=== PATIENT | female | born 1985 | race Caucasian/White ===

== ENCOUNTER 2016-10-10 12:56 | Emergency (ER) | payer MEDICARE, MEDICAID ==
[~2016-10-10] VITALS: Ht 165.1 cm; Wt 52.2 kg
[~2016-10-10 12:56] MED LIST: ATIVAN2 MG ORAL; BENADRYL50 MG ORAL; BENTYL10 MG ORAL; CARAFATE1 G1 ORAL; COLACE100 MG ORAL; CYCLOBENZAPRINE10 MG ORAL; IBUPROFEN400 MG ORAL; IMITREX50 MG ORAL; IMITREX6 MG/0.5 M SQ; LACTULOSE20 GM/301 ORAL; MIRALAX17 GM ORAL; NEURONTIN100 MG ORAL; NKM; NORCO 5-325 TA1 EACH ORAL; PANCREASE1 EA GT; PERCOCET 7.5-31 EACH ORAL; PHENERGAN SUPP25 MG RECTAL; PROTONIX40 MG ORAL; RANITIDINE HCL150 MG ORAL; VICODIN 5-3001 EACH ORAL; ZOFRAN ODT4 MG ORAL; ZOFRAN4 MG ORAL; ZOMIG5 MG ORAL
[2016-10-10] MEDS ORDERED: DiphenhydrAMINE 50mg/ml Inj IVP ONE ×2 (14:15→16:15)
[2016-10-10] MEDS ORDERED: LORazepam 1mg tab ORAL ONE (14:15)
[2016-10-10 14:30] LABS: APPEARANCE,URINE CLEAR; KETONES,URINE NEGATIVE (NEGATIVE); LEUKOCYTE ESTERASE ,URINE 1+ (NEGATIVE); NITRITE,URINE NEGATIVE (NEGATIVE); PH,URINE 6 (4.5-8.0); PROTEIN,URINE NEGATIVE (NEGATIVE); UROBILINOGEN,URINE NORMAL MG/DL (0.0-1.0)
[2016-10-10 14:45] LABS: BACTERIA,URINE FEW /HPF; RBC,URINE 0-2 /HPF (0 - 2); SQUAMOUS EPITHELIAL CELL,UR FEW /LPF (NONE/OCC); WBC,URINE 0-2 /HPF (0 - 2)
[2016-10-10] MEDS ORDERED: LORazepam Inj 2mg/ml 1ml IV ONE (15:30)
--- NOTE | 2016-10-10 15:39 | Emergency Room Report ---
History of Present Illness General Chief Complaint: Pain Present Illness HPI 31 YO female presents to the ED c/o migraine AGUILAR 07/16 in severity progressive onset denies N/V/F/C. Describes migraine as usual migraine AGUILAR and has Neurology appt. next week. Pt. reports that Imitrex does not work for her and in the ED she usually gets Ativan and Benadryl for her migraines. Pt also reports recent dx earlier this week with bilateral ovarian cysts and states continued pain due to OBGYN not prescribing her medications and telling her they will resolve on their own. PT describes bilateral adenexal pain radiating into the flanks. denies hematuria, frequency, or dysuria. Lastly pt. also requests evaluation of her "pancreatitis" as she intermittently has epigastric pain and is NPO and requires TPN. Pt. denies states is on Nexplanon implant, Denies hx of STI or PID. Denies CP, Palpitations, LOC, AMS, dizziness, Changes in Vision, Sensation, paresthesias, or a sudden severe headache. Allergies: Coded Allergies: ASPIRIN (Unverified Allergy, Unknown, 01/22/16) LATEX (Verified Allergy, Unknown, 01/22/16) METOCLOPRAMIDE (Unverified Allergy, Unknown, 01/22/16) PENICILLIN (Unverified Allergy, Unknown, 01/22/16) PROCHLORPERAZINE (Unverified Allergy, Unknown, 05/11/15) SULFA (SULFONAMIDE ANTIBIOTICS) (Unverified Allergy, Unknown, 05/11/15) Uncoded Allergies: SULFA (Allergy, Unknown, 01/22/16) Patient History Past Medical History: see triage record Past Surgical History: none Pertinent Family History: none Last Menstrual Period: 09/16/16 Now: No Reviewed Nursing Documentation: PMH: Agreed, PSxH: Agreed Nursing Documentation-PMH Hx Cardiac Problems: No Hx Hypertension: No Hx Pacemaker: No Hx Asthma: No Hx COPD: No Hx Diabetes: No Hx Cancer: No Hx Gastrointestinal Problems: Yes - pancreatitis Hx Dialysis: Yes Hx Neurological Problems: Yes - Migraines Hx Cerebrovascular Accident: No Hx Seizures: No Hx Vertigo: Yes Hx Dizziness: Yes Hx Headaches: Yes - migraines Review of Systems All Other Systems: negative except mentioned in HPI Physical Exam Vital Signs Date Time Temp Pulse Resp B/P Pulse Ox O2 Delivery O2 Flow Rate FiO2 10/10/16 12:58 98.2 116 20 107/75 100 Room Air Sp02 EP Interpretation: reviewed, normal - VS re-evaluated pt. is nontachycardic General Appearance: no apparent distress, alert, GCS 15, non-toxic, other - Pt observed from distance in NAD on her phone during ED visit. Head: normocephalic, atraumatic Eyes: bilateral eye PERRL, bilateral eye normal inspection ENT: hearing grossly normal, normal pharynx, no angioedema, normal voice Neck: full range of motion, supple/symm/no masses Respiratory: chest non-tender, lungs clear, normal breath sounds, speaking full sentences Cardiovascular #1: regular rate, rhythm Cardiovascular #2: 2+ radial (R), 2+ radial (L) Gastrointestinal: normal bowel sounds, soft, no mass, no guarding, no rebound, other - diffuse TTP in epigastric area, RUQ , negative mcburnys, no peritoneal signs Rectal: deferred Genitourinary: normal inspection, no CVA tenderness, other - bilateral adenexal TTP, no LAD Musculoskeletal: back normal, gait/station normal, normal range of motion, non- tender, no calf tenderness Neurologic: alert, oriented x3, responsive, motor strength/tone normal, sensory intact, cerebellar normal, normal gait, speech normal Psychiatric: judgement/insight normal, memory normal, mood/affect normal, no suicidal/homicidal ideation Skin: normal color, no rash, warm/dry, well hydrated Lymphatic: no adenopathy Medical Decision Making PA Attestation Dr. Lomeli is my supervising Physician whom patient management has been discussed with. Diagnostic Impression: Primary Impression: Migraine headache Qualified Codes: G43.909 - Migraine, unspecified, not intractable, without status migrainosus Additional Impressions: Hx of ovarian cyst Hx of pancreatitis ER Course Pt. presents to the ED c/o 1) migraine 10/10 in severity, describes typical migraine. progressive onset, with neurologist appt. next week. pt states Imitrex does not work for her, and states " only IV Ativan and Benadryl help " 2) Pt also requests "evaluation of her pancreatitis" PT reports chronic epigastric pain, nausea, decreased appetite, inability to have oral intake and requires TPN. 3) Pt. reports continued Bilateral Adenexal pain with hx of ovarian cyst with US performed this past week at [facility]. pt reports "OBGYN saw bilateral ovarian cysts and stated there is no surgery needed, and also did not prescribe her with anything." Ddx considered but are not limited to migraine, SAH, Psedudo motor Cerebri, Mass lesion, Cluster AGUILAR, Tension AGUILAR, Post lumbar puncture AGUILAR, acute pancreatitis , ovarian cysts, torsion, ectopic . Vital signs: are WNL, pt. is afebrile H&PE are most consistent with migraine headache. - Previous recent visits with laboratory work noted to be normal. Pt noted to have multiple visits for both migraine and abdominal pain with similar presentations. I do not feel further laboratory or imaging tests are warranted other than Lipase and UA. pt. is not actively vomiting at this time in NAD, PE does not suggest dehydration. Pt is ambulatory with no focal neurological deficits due to progressive onset and hx of migraines CT imaging is not warranted at this time. - D/w pt. that ovarian cysts are usually benign and treated with oral anti- inflammatory medications. - Pt states she cannot have medications orally due to her gastritis and pancreatitis. ORDERS: - Lipase: 61 WNL -UA: WNL no evidence of infection no wbc's no leukocyte esterase, few bacteria and few epithelial cells indicate contamination. ED INTERVENTIONS: 25 mg Benadryl IV -150mg Zantac- Pt. refused and requested all meds to be IV -50mg Pepcid IV -1mg Ativan IV -25mg Benadryl (second dose) -After discussion of laboratory results and discharge plan pt. began to request stronger pain medications as interventions provided have not completely relieved her pain. - D/w pt. that she needs to follow up with GI specialist, Neurologist, OBGYN, PCP and possibly Chronic Pain management doctor, as she is stable for out patient treatment, and normally she would be prescribed tylenol or motrin however she refused stating she can't have PO meds, d/w pt. that her presentation and lab results today to not warrant I.V pain medications and also discussed with pt. that we cant d/c her with I.V pain medications so giving her one dose here ultimately will only be a short-duration temporary intervention. - Pt. makes several complaints that "we never completely treat her here in the ED, and even the doctors upstairs never follow up." - d/w pt. that her exam and laboratory work does not indicate further interventions or work up in the ED, that she is stable to outpatient follow up. -d/w pt. that dilaudid and morphine are not standard of care for migraines. PT is well known to [facility] for pain related complaints, with drug seeking behavior, and Opioid dependence, in addition to non-satisfaction with multiple ED providers. DISCHARGE: At this time pt. is stable for d/c to home. Will provide printed patient care instructions, and any necessary prescriptions. Care plan and follow up instructions have been discussed with the patient prior to discharge. Labs Test 10/10/16 14:01 10/10/16 15:00 Urine Color Pale yellow Urine Appearance Clear Urine pH 6 (4.5-8.0) Urine Specific [place] 1.015 (1.005-1.035) Urine Protein Negative (NEGATIVE) Urine Glucose (UA) Negative (NEGATIVE) Urine Ketones Negative (NEGATIVE) Urine Occult Blood 1+ (NEGATIVE) Urine Nitrite Negative (NEGATIVE) Urine Bilirubin Negative (NEGATIVE) Urine Urobilinogen Normal MG/DL (0.0-1.0) Urine Leukocyte Esterase 1+ (NEGATIVE) Urine RBC 0-2 /HPF (0 - 2) Urine WBC 0-2 /HPF (0 - 2) Urine Squamous Epithelial Cells Few /LPF (NONE/OCC) Urine Bacteria Few /HPF (NONE) Lipase 61 U/L (< 60) Last Vital Signs Date Time Temp Pulse Resp B/P Pulse Ox O2 Delivery O2 Flow Rate FiO2 10/10/16 12:58 98.2 116 20 107/75 100 Room Air Disposition: HOME, SELF-CARE Condition: Stable Referrals: NOT CHOSEN IPA/,REFERRING (PCP) Patient Instructions: Migraine Headache, [id number] Additional Instructions: Take any previously prescribed medications as directed. -Follow up with your Neurologist in 3-4 days - Follow up with your PCP in 3-4 days. Return sooner to ED if new symptoms occur, or current symptoms become worse. Jennifer Ramirez Oct 10, 2016 15:39
[2016-10-10] MEDS ORDERED: Famotidine 20 MG/ 2ML VIAL IVP ONE (16:00)
[2016-10-10 16:39] VITALS: BP 110/79
[2016-10-10 16:42] VITALS: BP 107/75
== END 2016-10-10 16:43 | disposition home or self-care (01) ==
LOC: EMR 14:10
DX: G43.909 Migraine, unspecified, not intractable, without status migrainosus (principal); Z87.19 Personal history of other diseases of the digestive system; Z87.898 Personal history of other specified conditions; Z88.2 Allergy status to sulfonamides; Z88.6 Allergy status to analgesic agent; Z88.0 Allergy status to penicillin; Z91.040 Latex allergy status; Z87.42 Personal history of other diseases of the female genital tract
CPT/HCPCS: 36415; 81003; 83690; 96374; 96375; 99284; J1200; S0028

== ENCOUNTER 2016-12-18 02:54 | Emergency (ER) | payer MEDICARE, MEDICAID ==
[~2016-12-18] VITALS: Ht 165.1 cm; Wt 52.2 kg
[2016-12-18] MEDS ORDERED: NKM (03:08)
[2016-12-18] MEDS ORDERED: DiphenhydrAMINE 50mg/ml Inj IVP ONE ×2 (03:30→04:30)
[2016-12-18] MEDS ORDERED: Famotidine 20 MG/ 2ML VIAL IVP ONE (03:30)
[2016-12-18] MEDS ORDERED: LORazepam Inj 2mg/ml 1ml IV ONE ×2 (03:30→04:30)
[2016-12-18 03:45] LABS: BASOPHILS % (AUTO) 1.2 % (0.0-2.0); EOSINOPHILS % (AUTO) 4.7 % (0.0-3.0); LYMPHOCYTES % (AUTO) 48.5 % (20.0-45.0); MEAN CORPUSCULAR HGB CONC 33.4 G/DL (32.0-36.0); MEAN CORPUSCULAR VOLUME 90 FL (80-99); MEAN PLATELET VOLUME 5.8 FL (6.5-10.1); MONOCYTES % (AUTO) 6.8 % (1.0-10.0); NEUTROPHILS % (AUTO) 38.7 % (45.0-75.0); PLATELET COUNT 235 K/UL (150-450); RED BLOOD COUNT 3.83 M/UL (4.20-5.40); RED CELL DISTRIBUTION WIDTH 11.9 % (11.6-14.8); WHITE BLOOD COUNT 6.7 K/UL (4.8-10.8)
[2016-12-18 04:01] LABS: ALANINE AMINOTRANSFERASE 9 U/L (3-33); ALBUMIN/GLOBULIN RATIO 1.6 (1.0-2.7); ANION GAP 15 (5-15); ASPARTATE AMINO TRANSFERASE 18 U/L (5-40); CALCIUM 9.2 mg/dL (8.6-10.2); CARBON DIOXIDE 25 mEQ/L (20-30); CHLORIDE 104 mEQ/L (98-107); CREATININE 0.6 mg/dL (0.5-0.9); GLOMERULAR FILTRATION RATE > 60 mL/min (>60); HEMOLYSIS 7; LIPASE 81 U/L (< 60); MAGNESIUM 1.6 mg/dL (1.7-2.5); POTASSIUM 3.8 mEQ/L (3.4-4.9); SODIUM 144 mEQ/L (135-145); TOTAL PROTEIN 6.8 g/dL (6.6-8.7)
[2016-12-18 04:26] LABS: APPEARANCE,URINE CLEAR; KETONES,URINE NEGATIVE (NEGATIVE); LEUKOCYTE ESTERASE ,URINE 1+ (NEGATIVE); NITRITE,URINE NEGATIVE (NEGATIVE); PH,URINE 7 (4.5-8.0); PROTEIN,URINE NEGATIVE (NEGATIVE); UROBILINOGEN,URINE NORMAL MG/DL (0.0-1.0)
[2016-12-18] MEDS ORDERED: Pantoprazole Inj IVP ONE (04:30)
[2016-12-18 04:56] LABS: BACTERIA,URINE FEW /HPF; RBC,URINE 0-2 /HPF (0 - 2); WBC,URINE 0-2 /HPF (0 - 2)
[2016-12-18 05:04] VITALS: BP 111/72
[2016-12-18 05:12] VITALS: BP 111/72
--- NOTE | 2016-12-18 06:27 | Emergency Room Report ---
History of Present Illness General Chief Complaint: Abdominal Pain Source: Patient Present Illness HPI 31-year-old female presents to ED for evaluation. Patient is well known to [facility]; has been here multiple times for complaint of pancreatitis and pain. Patient states she is here because she's unable to keep fluids down and is having extreme pain. Pain is sharp, epigastric, 10 of 10, nonradiating. No aggravating relieving factors. Patient states she did not have any pain medications at home. Patient states her neurologist placed a PICC line so she can have pain medications. Patient states she is not diabetic and her sugar is "out of control". Denies chest pain or shortness of breath. Denies any other symptoms Allergies: Coded Allergies: ACETAMINOPHEN (Verified Allergy, Unknown, 12/18/16) ASPIRIN (Unverified Allergy, Unknown, 12/18/16) HALOPERIDOL (Verified Allergy, Unknown, 12/18/16) LATEX (Verified Allergy, Unknown, 12/18/16) METOCLOPRAMIDE (Unverified Allergy, Unknown, 12/18/16) PENICILLIN (Unverified Allergy, Unknown, 12/18/16) PROCHLORPERAZINE (Unverified Allergy, Unknown, 05/11/15) SULFA (SULFONAMIDE ANTIBIOTICS) (Unverified Allergy, Unknown, 05/11/15) Uncoded Allergies: SULFA (Allergy, Unknown, 01/22/16) Patient History Past Medical History: DM, GERD, migraines, other - pancreatitis Past Surgical History: none Pertinent Family History: none Social History: Denies: alcohol use, drug use, smoking Last Menstrual Period: yesterday Now: No Immunizations: UTD Reviewed Nursing Documentation: PMH: Agreed, PSxH: Agreed Nursing Documentation-PMH Past Medical History: No History, Except For Hx Cardiac Problems: No - autoimmune disease Hx Hypertension: No Hx Pacemaker: No Hx Asthma: No Hx COPD: No Hx Diabetes: Yes - dm2 Hx Cancer: No Hx Gastrointestinal Problems: Yes - pancreatitis Hx Dialysis: Yes Hx Neurological Problems: Yes - Migraines Hx Cerebrovascular Accident: No Hx Seizures: No Hx Vertigo: Yes Hx Dizziness: Yes Hx Headaches: Yes - migraines Review of Systems All Other Systems: negative except mentioned in HPI Physical Exam Vital Signs Date Time Temp Pulse Resp B/P Pulse Ox O2 Delivery O2 Flow Rate FiO2 12/18/16 03:01 98.1 111 16 129/87 97 12/18/16 05:04 Room Air Sp02 EP Interpretation: reviewed, normal General Appearance: mild distress Head: normocephalic Eyes: bilateral eye PERRL, bilateral eye normal inspection ENT: normal ENT inspection Neck: normal inspection Respiratory: chest non-tender, lungs clear, normal breath sounds, speaking full sentences Cardiovascular #1: regular rate, rhythm, no edema Gastrointestinal: normal bowel sounds, non tender, soft, non-distended, no guarding, no rebound Rectal: deferred Genitourinary: no CVA tenderness Musculoskeletal: normal inspection Neurologic: alert, oriented x3, responsive, motor strength/tone normal, sensory intact, speech normal Psychiatric: normal inspection Skin: normal inspection Lymphatic: normal inspection Medical Decision Making Diagnostic Impression: Primary Impression: Pancreatitis, chronic Qualified Codes: K86.1 - Other chronic pancreatitis Additional Impression: Opiate dependence Qualified Codes: F11.20 - Opioid dependence, uncomplicated ER Course 31-year-old female presents to ED complaining of epigastric pain, vomiting. History of chronic pancreatitis Differential-dehydration, pancreatitis, gastritis Patient placed on stretcher. After initial history and physical I ordered labs , IV fluids, Pepcid, Ativan and Benadryl. Accu-Chek within normal limits Labs-no leukocytosis, hemoglobin/hematocrit stable, electrolytes okay, lipase within normal limits, glucose within normal limits Patient made multiple requests for pain medication. I explained to patient that the emergency room is not an appropriate place for chronic pain control. Patient states she does pain management doctor, nor does she have a PMD. patient has multiple visits to [facility] for same complaint. Diagnoses-chronic pancreatitis, opioid dependence Stable and discharged to home. Followup with PMD. Return to ED if symptoms recur or worsen Labs Test 12/18/16 03:35 12/18/16 04:20 White Blood Count 6.7 K/UL (4.8-10.8) Red Blood Count 3.83 M/UL (4.20-5.40) Hemoglobin 11.5 G/DL (12.0-16.0) Hematocrit 34.4 % (37.0-47.0) Mean Corpuscular Volume 90 FL (80-99) Mean Corpuscular Hemoglobin 30.0 PG (27.0-31.0) Mean Corpuscular Hemoglobin Concent 33.4 G/DL (32.0-36.0) Red Cell Distribution Width 11.9 % (11.6-14.8) Platelet Count 235 K/UL (150-450) Mean Platelet Volume 5.8 FL (6.5-10.1) Neutrophils (%) (Auto) 38.7 % (45.0-75.0) Lymphocytes (%) (Auto) 48.5 % (20.0-45.0) Monocytes (%) (Auto) 6.8 % (1.0-10.0) Eosinophils (%) (Auto) 4.7 % (0.0-3.0) Basophils (%) (Auto) 1.2 % (0.0-2.0) Sodium Level 144 mEQ/L (135-145) Potassium Level 3.8 mEQ/L (3.4-4.9) Chloride Level 104 mEQ/L (98-107) Carbon Dioxide Level 25 mEQ/L (20-30) Anion Gap 15 (5-15) Blood Urea Nitrogen 12 mg/dL (7-23) Creatinine 0.6 mg/dL (0.5-0.9) Estimat Glomerular Filtration Rate > 60 mL/min (>60) Glucose Level 108 mg/dL (74-106) Calcium Level 9.2 mg/dL (8.6-10.2) Magnesium Level 1.6 mg/dL (1.7-2.5) Total Bilirubin 0.3 mg/dL (0.0-1.2) Aspartate Amino Transf (AST/SGOT) 18 U/L (5-40) Alanine Aminotransferase (ALT/SGPT) 9 U/L (3-33) Alkaline Phosphatase 53 U/L (35-104) Total Protein 6.8 g/dL (6.6-8.7) Albumin 4.2 g/dL (3.5-5.2) Globulin 2.6 g/dL Albumin/Globulin Ratio 1.6 (1.0-2.7) Lipase 81 U/L (< 60) Acetone Level Negative (NEGATIVE) Urine Color Pale yellow Urine Appearance Clear Urine pH 7 (4.5-8.0) Urine Specific [place] 1.010 (1.005-1.035) Urine Protein Negative (NEGATIVE) Urine Glucose (UA) Negative (NEGATIVE) Urine Ketones Negative (NEGATIVE) Urine Occult Blood 2+ (NEGATIVE) Urine Nitrite Negative (NEGATIVE) Urine Bilirubin Negative (NEGATIVE) Urine Urobilinogen Normal MG/DL (0.0-1.0) Urine Leukocyte Esterase 1+ (NEGATIVE) Urine RBC 0-2 /HPF (0 - 2) Urine WBC 0-2 /HPF (0 - 2) Urine Squamous Epithelial Cells None /LPF (NONE/OCC) Urine Bacteria Few /HPF (NONE) Urine HCG, Qualitative Negative Last Vital Signs Date Time Temp Pulse Resp B/P Pulse Ox O2 Delivery O2 Flow Rate FiO2 12/18/16 05:12 98.1 113 20 111/72 100 Room Air Status: improved Disposition: HOME, SELF-CARE Condition: Stable Referrals: NOT CHOSEN IPA/,REFERRING (PCP) Patient Instructions: [facility] Procedure ANABELL SANDERSON M.D. Dec 18, 2016 06:27
== END 2016-12-18 05:10 | disposition home or self-care (01) ==
LOC: EMR 03:12
DX: K86.1 Other chronic pancreatitis (principal); F11.20 Opioid dependence, uncomplicated; E11.9 Type 2 diabetes mellitus without complications; K21.9 Gastro-esophageal reflux disease without esophagitis; Z88.6 Allergy status to analgesic agent; Z88.8 Allergy status to other drugs, medicaments and biological substances; Z91.040 Latex allergy status; Z88.0 Allergy status to penicillin; Z88.2 Allergy status to sulfonamides
CPT/HCPCS: 36415; 80053; 81003; 81025; 82009; 83690; 83735; 85025; 96374; 96375; 99284; C9113; J1200; J2405; S0028

== ENCOUNTER 2017-01-16 23:41 | Emergency (ER) | payer MEDICARE, MEDICAID ==
[~2017-01-16] VITALS: Ht 165.1 cm; Wt 52.2 kg
[2017-01-17] MEDS ORDERED: NS 55ml IV ONE (00:35)
[2017-01-17] MEDS ORDERED: HYDROmorphone 1 MG, DiphenhydrAMINE 25 MG in NS 55 ML IVPB ONE (01:30)
[2017-01-17] MEDS ORDERED: LORazepam Inj 2mg/ml 1ml IV ONE (01:30)
[2017-01-17] MEDS ORDERED: HYDROmorphone 1mg/ml Carpuject ONE (01:44)
[2017-01-17] MEDS ORDERED: DiphenhydrAMINE 50mg/ml Inj ONE (01:44)
[2017-01-17 01:59] LABS: BASOPHILS % (AUTO) 0.8 % (0.0-2.0); EOSINOPHILS % (AUTO) 1.8 % (0.0-3.0); LYMPHOCYTES % (AUTO) 47.7 % (20.0-45.0); MEAN CORPUSCULAR HEMOGLOBIN 29.7 PG (27.0-31.0); MEAN CORPUSCULAR HGB CONC 32.5 G/DL (32.0-36.0); MEAN CORPUSCULAR VOLUME 91 FL (80-99); MEAN PLATELET VOLUME 6.7 FL (6.5-10.1); MONOCYTES % (AUTO) 8.4 % (1.0-10.0); NEUTROPHILS % (AUTO) 41.3 % (45.0-75.0); PLATELET COUNT 227 K/UL (150-450); RED BLOOD COUNT 3.46 M/UL (4.20-5.40); RED CELL DISTRIBUTION WIDTH 12.4 % (11.6-14.8); WHITE BLOOD COUNT 4.9 K/UL (4.8-10.8)
[2017-01-17 02:16] VITALS: BP 108/63
--- NOTE | 2017-01-17 02:17 | Emergency Room Report ---
History of Present Illness General Chief Complaint: Abdominal Pain Source: Patient Present Illness HPI 31YOF well-known to [facility] presents with right sided abd pain and nausea - states feels different from chronic pancreatitis-type pain. Denies vomiting, fever/ chills, diarrhea, urinary complaints. States also "doesnt feel well" because she just got lovenox injection for suspected blood clot in her PICC line and right sided occipital nerve block for chronic pain. Requesting IV dilaudid for pain, IV ativan "because I havent slept in 4 days" and IV benadryl. She otherwise denies chest pain, SOB. Allergies: Coded Allergies: ACETAMINOPHEN (Verified Allergy, Unknown, 12/18/16) ASPIRIN (Unverified Allergy, Unknown, 12/18/16) HALOPERIDOL (Verified Allergy, Unknown, 12/18/16) LATEX (Verified Allergy, Unknown, 12/18/16) METOCLOPRAMIDE (Unverified Allergy, Unknown, 12/18/16) PENICILLIN (Unverified Allergy, Unknown, 12/18/16) PROCHLORPERAZINE (Unverified Allergy, Unknown, 05/11/15) SULFA (SULFONAMIDE ANTIBIOTICS) (Unverified Allergy, Unknown, 05/11/15) Uncoded Allergies: SULFA (Allergy, Unknown, 01/22/16) Patient History Past Medical History: see triage record, old chart reviewed Past Surgical History: none, casper Pertinent Family History: none Social History: Denies: alcohol use, drug use, smoking Last Menstrual Period: 01/11/17 Now: No Immunizations: UTD Reviewed Nursing Documentation: PMH: Agreed, PSxH: Agreed Nursing Documentation-PMH Hx Cardiac Problems: No - autoimmune disease Hx Hypertension: No Hx Pacemaker: No Hx Asthma: No Hx COPD: No Hx Diabetes: Yes - dm2 Hx Cancer: No Hx Gastrointestinal Problems: Yes - pancreatitis Hx Dialysis: Yes Hx Neurological Problems: Yes - Migraines Hx Cerebrovascular Accident: No Hx Seizures: No Hx Vertigo: Yes Hx Dizziness: Yes Hx Headaches: Yes - migraines Review of Systems All Other Systems: negative except mentioned in HPI Physical Exam Vital Signs Date Time Temp Pulse Resp B/P Pulse Ox O2 Delivery O2 Flow Rate FiO2 01/16/17 23:49 98.2 89 18 114/70 99 Room Air Sp02 EP Interpretation: reviewed, normal General Appearance: normal inspection, well appearing, no apparent distress, alert, GCS 15, non-toxic, other - lying in stretcher wearing eye/sleep mask Head: normocephalic, atraumatic Eyes: bilateral eye EOMI, bilateral eye PERRL ENT: normal ENT inspection, hearing grossly normal, normal voice Neck: normal inspection, full range of motion, supple, no bony tend Respiratory: normal inspection, lungs clear, normal breath sounds, no respiratory distress, no retraction, no wheezing Cardiovascular #1: regular rate, rhythm, no edema Gastrointestinal: normal inspection, normal bowel sounds, non tender, soft, no mass, no organomegaly, no guarding, no hernia Genitourinary: no CVA tenderness Musculoskeletal: normal inspection, back normal, normal range of motion, Babatunde' s Sign negative Neurologic: normal inspection, alert, oriented x3, responsive, airline ticket agent III-XII nml as tested, motor strength/tone normal, speech normal Psychiatric: normal inspection, judgement/insight normal, mood/affect normal Skin: normal inspection, normal color, no rash Lymphatic: normal inspection Medical Decision Making Diagnostic Impression: Primary Impression: Right-sided abdominal pain of unknown cause Additional Impression: Insomnia Qualified Codes: F51.01 - Primary insomnia ER Course 31-year-old female presents to ED complaining of right sided abd pain and insomnia DDX: dehydration, pancreatitis, gastritis Patient received IV fluids, dilaudid, Ativan and Benadryl. Labs-no leukocytosis, hemoglobin/hematocrit stable, electrolytes okay, lipase within normal limits, glucose within normal limits Patient made multiple requests for pain medication, medication for acid reflux, and for insomnia, hydration. I, as did previous ER doctors here, explained to patient that the emergency room is not an appropriate place for chronic pain control. Patient states she does pain management doctor, nor does she have a PMD. patient has multiple visits [place] [facility] [place] same complaint. Diagnoses-abdominal pain, insomnia, drug-seeking behavior, opioid dependence Stable and discharged to home. Followup with PMD. Return to ED if symptoms recur or worsen Last Vital Signs Date Time Temp Pulse Resp B/P Pulse Ox O2 Delivery O2 Flow Rate FiO2 01/16/17 23:49 98.2 89 18 114/70 99 Room Air Status: improved Disposition: HOME, SELF-CARE Referrals: QUYNH WATSON (PCP) KEYON CONNELL M.D. Jan 17, 2017 02:17
[2017-01-17 02:30] LABS: ALANINE AMINOTRANSFERASE 9 U/L (3-33); ALBUMIN/GLOBULIN RATIO 1.5 (1.0-2.7); ANION GAP 11 (5-15); ASPARTATE AMINO TRANSFERASE 15 U/L (5-40); CALCIUM 8.4 mg/dL (8.6-10.2); CARBON DIOXIDE 26 mEQ/L (20-30); CHLORIDE 105 mEQ/L (98-107); CREATININE 0.5 mg/dL (0.5-0.9); GLOMERULAR FILTRATION RATE > 60 mL/min (>60); HEMOLYSIS 3; POTASSIUM 3.8 mEQ/L (3.4-4.9); SODIUM 142 mEQ/L (135-145); TOTAL PROTEIN 6.1 g/dL (6.6-8.7)
[2017-01-17 02:41] VITALS: BP 108/63
== END 2017-01-17 02:45 | disposition home or self-care (01) ==
LOC: EMR 01-17 00:34
DX: R10.9 Unspecified abdominal pain (principal); F51.01 Primary insomnia; E11.9 Type 2 diabetes mellitus without complications; Z90.49 Acquired absence of other specified parts of digestive tract; Z88.2 Allergy status to sulfonamides
CPT/HCPCS: 36415; 80053; 85025; 96374; 99284; J1170; J1200

== ENCOUNTER 2017-02-03 01:41 | Emergency (ER) | payer MEDICARE, MEDICAID ==
[~2017-02-03] VITALS: Ht 165.1 cm; Wt 52.2 kg
[2017-02-03] MEDS ORDERED: Ketorolac 30mg Inj IV ONE (02:45)
--- NOTE | 2017-02-03 03:01 | Emergency Room Report ---
History of Present Illness General Chief Complaint: Headache Source: Patient Present Illness HPI Is a 31-year-old female who has a history of chronic pain with multiple complaint. She attributed this to having is on mentation several years ago. Since then she been having a lot of trouble. She refused to remove however. She has history of chronic headache migraine headache. She said tonight it was different. She said that instead of being on the right side is on the left side. She also complaining of a whole body being numb. Also complaining of generalized pain 10 out of 10. Denies any fever or chills. Denies any nausea vomiting. Requesting IV Dilaudid and Benadryl. She said that she hasn't eat or drink anything for a day. This similar symptom in the past. Similar presentation. She said she hasn't been to this hospital for a month. Has been to [place] for over a month. She actually checked into see her today but didn't want to wait and came here. She was there on January 25 for the same thing. Allergies: Coded Allergies: ACETAMINOPHEN (Verified Allergy, Unknown, 12/18/16) ASPIRIN (Unverified Allergy, Unknown, 12/18/16) HALOPERIDOL (Verified Allergy, Unknown, 12/18/16) LATEX (Verified Allergy, Unknown, 12/18/16) METOCLOPRAMIDE (Unverified Allergy, Unknown, 12/18/16) PENICILLIN (Unverified Allergy, Unknown, 12/18/16) PROCHLORPERAZINE (Unverified Allergy, Unknown, 05/11/15) SULFA (SULFONAMIDE ANTIBIOTICS) (Unverified Allergy, Unknown, 05/11/15) Uncoded Allergies: SULFA (Allergy, Unknown, 01/22/16) Patient History Past Medical History: see triage record, old chart reviewed Past Surgical History: other Pertinent Family History: none Social History: Denies: smoking Last Menstrual Period: JANUARY 12 Now: No : 0 Immunizations: other Reviewed Nursing Documentation: PMH: Agreed, PSxH: Agreed Nursing Documentation-PMH Hx Cardiac Problems: No - autoimmune disease Hx Pacemaker: No Hx Asthma: No Hx COPD: No Hx Diabetes: Yes - dm2 Hx Cancer: No Hx Dialysis: Yes Hx Neurological Problems: Yes - Migraines Hx Cerebrovascular Accident: No Hx Seizures: No Hx Vertigo: Yes Hx Dizziness: Yes Hx Headaches: Yes - migraines Review of Systems Eye: Reports: blurred vision, Denies: eye pain ENT: Denies: ear pain, nose congestion, throat swelling Respiratory: Denies: cough, shortness of breath Cardiovascular: Denies: chest pain, palpitations Gastrointestinal: Denies: abdominal pain, diarrhea, nausea, vomiting Musculoskeletal: Denies: back pain, joint pain Skin: Denies: rash Neurological: Reports: headache, numbness Endocrine: Denies: increased thirst, increased urine Hematologic/Lymphatic: Denies: easy bruising All Other Systems: negative except mentioned in HPI Physical Exam Vital Signs Date Time Temp Pulse Resp B/P Pulse Ox O2 Delivery O2 Flow Rate FiO2 02/03/17 01:48 97.9 102 18 119/73 99 vital signs remarkable Sp02 EP Interpretation: reviewed, normal General Appearance: well appearing, no apparent distress, alert Head: normocephalic, atraumatic Eyes: bilateral eye EOMI, bilateral eye PERRL ENT: hearing grossly normal, normal pharynx Neck: full range of motion, supple, no meningismus Respiratory: chest non-tender, lungs clear, normal breath sounds Cardiovascular #1: regular rate, rhythm, no murmur Gastrointestinal: normal bowel sounds, non tender, no mass, no organomegaly, no bruit, non-distended Musculoskeletal: back normal, gait/station normal, normal range of motion Neurologic: alert, oriented x3 Psychiatric: anxious - histrionic Skin: warm/dry Medical Decision Making Diagnostic Impression: Primary Impression: Headache Qualified Codes: R51 - Headache Additional Impressions: Opiate dependence Qualified Codes: F11.20 - Opioid dependence, uncomplicated Gastritis Qualified Codes: K29.00 - Acute gastritis without bleeding ER Course Patient presents with exacerbation of chronic headache. She said that this is different and requests a CT scan. CT scan unremarkable. She said that she could not walk but walked to the bathroom without a problem. Labs unremarkable. Her PICC line show no evidence of obstruction or infection. I told patient that the Academy of [employer] discourage use of narcotic for headache. I am uncomfortable giving her Dilaudid IV for headache without any new changes. this can cause addiction in rebound headache. I see no evidence of profound dehydration. We'll discharge home. Lab Results Impression labs unremarkable CT/MRI/US Diagnostic Results CT/MRI/US Diagnostic Results : Imaging Test Ordered: CT head Impression negative per radiologist Last Vital Signs Date Time Temp Pulse Resp B/P Pulse Ox O2 Delivery O2 Flow Rate FiO2 02/03/17 01:48 97.9 102 18 119/73 99 Status: improved Disposition: HOME, SELF-CARE Condition: Stable Patient Instructions: Migraine Headache Additional Instructions: Followup with your doctor as scheduled. Return for increasing pain, fever, chills, or any concern. JOSHUA MARTINI M.D. Feb 03, 2017 03:01
[2017-02-03 03:05] LABS: BASOPHILS % (AUTO) 0.6 % (0.0-2.0); EOSINOPHILS % (AUTO) 1.2 % (0.0-3.0); LYMPHOCYTES % (AUTO) 19.5 % (20.0-45.0); MEAN CORPUSCULAR HEMOGLOBIN 30.1 PG (27.0-31.0); MEAN CORPUSCULAR HGB CONC 33.8 G/DL (32.0-36.0); MEAN CORPUSCULAR VOLUME 89 FL (80-99); MEAN PLATELET VOLUME 5.4 FL (6.5-10.1); MONOCYTES % (AUTO) 4.6 % (1.0-10.0); NEUTROPHILS % (AUTO) 74.2 % (45.0-75.0); PLATELET COUNT 230 K/UL (150-450); RED BLOOD COUNT 3.47 M/UL (4.20-5.40); RED CELL DISTRIBUTION WIDTH 12.4 % (11.6-14.8); WHITE BLOOD COUNT 8.7 K/UL (4.8-10.8)
[2017-02-03 03:24] LABS: ANION GAP 14 (5-15); CALCIUM 8.8 mg/dL (8.6-10.2); CARBON DIOXIDE 25 mEQ/L (20-30); CHLORIDE 101 mEQ/L (98-107); CREATININE 0.6 mg/dL (0.5-0.9); GLOMERULAR FILTRATION RATE > 60 mL/min (>60); HEMOLYSIS 1; POTASSIUM 4.3 mEQ/L (3.4-4.9); SODIUM 140 mEQ/L (135-145)
[2017-02-03 03:26] LABS: APPEARANCE,URINE CLEAR; KETONES,URINE 2+ (NEGATIVE); LEUKOCYTE ESTERASE ,URINE NEGATIVE (NEGATIVE); NITRITE,URINE NEGATIVE (NEGATIVE); PH,URINE 5 (4.5-8.0); PROTEIN,URINE NEGATIVE (NEGATIVE); UROBILINOGEN,URINE NORMAL MG/DL (0.0-1.0)
[2017-02-03] MEDS ORDERED: Famotidine 20 MG/ 2ML VIAL IVP ONE (03:30)
[2017-02-03] MEDS ORDERED: Mylanta II UD 30ml ORAL ONE (03:30)
[2017-02-03 03:31] LABS: RBC,URINE 0-2 /HPF (0 - 2); SQUAMOUS EPITHELIAL CELL,UR FEW /LPF (NONE/OCC); WBC,URINE 0 /HPF (0 - 2)
[2017-02-03] MEDS ORDERED: IBUPROFEN600 MG ORAL (03:44)
[2017-02-03] MEDS ORDERED: ZOFRAN ODT4 MG ORAL (03:44)
[2017-02-03 03:45] VITALS: BP 107/78
[2017-02-03 03:55] VITALS: BP 107/78
[2017-02-03] MEDS ORDERED: DiphenhydrAMINE 50mg/ml Inj IVP ONE (04:00)
--- NOTE | 2017-02-04 10:33 | Diagnostic Imaging Report ---
Indications: 36 hours Technique: Continuous helical CT imaging of the brain was performed with automatic exposure control on a Siemens sensation [address] scanner. Axial and coronal images were reconstructed at 5 mm slice thickness and interval. CTDI volume(s): 70 mGy Total DLP: 1354 mGy-cm Findings: Comparison: None. Intracranial anatomy is unremarkable. No evidence of mass or hemorrhage, other attenuation abnormality, mass effect, midline shift, hydrocephalus or increased intracranial pressure. Bone window images are unremarkable. Visualized paranasal sinuses and mastoid air cells are clear. IMPRESSION: Negative noncontrast CT scan of the brain . This correlates with [employer] preliminary report. The CT scanner at [facility] is accredited by the [employer] and the scans are performed using protocols designed to limit radiation exposure to as low as reasonably achievable to attain images of sufficient resolution adequate for diagnostic evaluation.
== END 2017-02-03 04:15 | disposition home or self-care (01) ==
LOC: EMR 04:04
DX: R51 Headache (principal); F11.20 Opioid dependence, uncomplicated; E11.9 Type 2 diabetes mellitus without complications; Z86.69 Personal history of other diseases of the nervous system and sense organs; Z88.0 Allergy status to penicillin; Z88.2 Allergy status to sulfonamides; Z88.8 Allergy status to other drugs, medicaments and biological substances; Z88.6 Allergy status to analgesic agent; Z91.040 Latex allergy status
CPT/HCPCS: 36415; 70450; 80048; 80300; 81001; 81025; 85025; 96374; 96375; 99284; S0028

== ENCOUNTER 2017-03-18 12:49 | Emergency (ER) | payer MEDICARE, MEDICAID ==
[~2017-03-18] VITALS: Ht 165.1 cm; Wt 49.9 kg
[~2017-03-18 12:49] MED LIST changes: +IBUPROFEN600 MG ORAL
[2017-03-18] MEDS ORDERED: Pantoprazole Inj IV ONE (13:30)
[2017-03-18 13:49] VITALS: BP 106/76
[2017-03-18 14:03] LABS: BASOPHILS % (AUTO) 0.3 % (0.0-2.0); LYMPHOCYTES % (AUTO) 14.7 % (20.0-45.0); MEAN CORPUSCULAR HEMOGLOBIN 28.8 PG (27.0-31.0); MEAN CORPUSCULAR HGB CONC 32.6 G/DL (32.0-36.0); MEAN CORPUSCULAR VOLUME 88 FL (80-99); MEAN PLATELET VOLUME 6.4 FL (6.5-10.1); MONOCYTES % (AUTO) 4.8 % (1.0-10.0); NEUTROPHILS % (AUTO) 80.2 % (45.0-75.0); PLATELET COUNT 223 K/UL (150-450); RED BLOOD COUNT 3.48 M/UL (4.20-5.40); RED CELL DISTRIBUTION WIDTH 13.2 % (11.6-14.8); WHITE BLOOD COUNT 7.5 K/UL (4.8-10.8)
[2017-03-18] MEDS ORDERED: HYDROmorphone 1mg/ml Carpuject IVP ONE (14:30)
[2017-03-18] MEDS ORDERED: DiphenhydrAMINE 50mg/ml Inj IVP ONE (14:30)
[2017-03-18 14:32] LABS: POTASSIUM 4.5 mEQ/L (3.4-4.9); SODIUM 141 mEQ/L (135-145)
[2017-03-18 14:33] LABS: ALANINE AMINOTRANSFERASE 14 U/L (3-33); ANION GAP 17 (5-15); ASPARTATE AMINO TRANSFERASE 18 U/L (5-40); CALCIUM 9.3 mg/dL (8.6-10.2); CARBON DIOXIDE 21 mEQ/L (20-30); CHLORIDE 103 mEQ/L (98-107); CREATININE 0.8 mg/dL (0.5-0.9); GLOMERULAR FILTRATION RATE > 60 mL/min (>60); LIPASE 73 U/L (< 60); PHOSPHORUS 3.2 MG/DL (2.5-4.9); TOTAL PROTEIN 6.5 g/dL (6.6-8.7)
[2017-03-18 14:34] LABS: HEMOLYSIS 6
[2017-03-18 14:38] LABS: APPEARANCE,URINE CLEAR; KETONES,URINE NEGATIVE (NEGATIVE); LEUKOCYTE ESTERASE ,URINE NEGATIVE (NEGATIVE); NITRITE,URINE NEGATIVE (NEGATIVE); PH,URINE 6 (4.5-8.0); PROTEIN,URINE NEGATIVE (NEGATIVE); UROBILINOGEN,URINE NORMAL MG/DL (0.0-1.0)
[2017-03-18 14:46] LABS: BACTERIA,URINE FEW /HPF; RBC,URINE 0-2 /HPF (0 - 2); SQUAMOUS EPITHELIAL CELL,UR FEW /LPF (NONE/OCC); WBC,URINE 0-2 /HPF (0 - 2)
[2017-03-18 14:51] LABS: HEMOLYSIS 3; IRON 64 ug/dL (37-145); TOTAL IRON BINDING CAPACITY 297 ug/dL (250-400)
[2017-03-18] MEDS ORDERED: Famotidine 20 MG/ 2ML VIAL IVP ONE (15:00)
[2017-03-18] MEDS ORDERED: LORazepam Inj 2mg/ml 1ml IV ONE (15:00)
[2017-03-18 15:16] VITALS: BP 120/70
--- NOTE | 2017-03-19 07:11 | Emergency Room Report ---
History of Present Illness General Chief Complaint: Vomiting Source: Patient Present Illness HPI 31-year-old female presents to ED for evaluation. Patient initially referred to have blood work done as outpatient but lab will not draw from PICC line so patient was sent to ER. Patient is well-known to [facility] she has been here multiple times for pain-related to multiple GI issues. Patient states she had blood work done yesterday which was abnormal and wanted to have it rechecked. Patient states she is not eating well and has persistent episodes of acid reflux and abdominal pain. Pain is a 10 out of 10. Sharp. Nonradiating. Denies chest pain or shortness of breath. Denies fevers chills. bloodwork ordered by Dr Orourke. No other aggravating or relieving factors. Denies any other associated symptoms Allergies: Coded Allergies: ACETAMINOPHEN (Verified Allergy, Unknown, 12/18/16) ASPIRIN (Unverified Allergy, Unknown, 12/18/16) HALOPERIDOL (Verified Allergy, Unknown, 12/18/16) LATEX (Verified Allergy, Unknown, 12/18/16) METOCLOPRAMIDE (Unverified Allergy, Unknown, 12/18/16) PENICILLIN (Unverified Allergy, Unknown, 12/18/16) PROCHLORPERAZINE (Unverified Allergy, Unknown, 05/11/15) SULFA (SULFONAMIDE ANTIBIOTICS) (Unverified Allergy, Unknown, 05/11/15) Uncoded Allergies: SULFA (Allergy, Unknown, 01/22/16) Patient History Past Medical History: DM, GERD, migraines Past Surgical History: none Pertinent Family History: none Social History: Denies: alcohol use, drug use, smoking Last Menstrual Period: 01/16/17 Now: No Immunizations: UTD Reviewed Nursing Documentation: PMH: Agreed, PSxH: Agreed Nursing Documentation-PMH Hx Cardiac Problems: No - autoimmune disease Hx Pacemaker: No Hx Asthma: No Hx COPD: No Hx Diabetes: Yes - dm2 Hx Cancer: No Hx Dialysis: Yes Hx Neurological Problems: Yes - Migraines Hx Cerebrovascular Accident: No Hx Seizures: No Hx Vertigo: Yes Hx Dizziness: Yes Hx Headaches: Yes - migraines Review of Systems All Other Systems: negative except mentioned in HPI Physical Exam Vital Signs Date Time Temp Pulse Resp B/P Pulse Ox O2 Delivery O2 Flow Rate FiO2 03/18/17 12:56 98.1 92 14 106/76 99 Room Air Sp02 EP Interpretation: reviewed, normal General Appearance: no apparent distress, alert, GCS 15, non-toxic Head: normocephalic, atraumatic Eyes: bilateral eye PERRL, bilateral eye normal inspection ENT: hearing grossly normal, normal pharynx, no angioedema, normal voice Neck: full range of motion, supple/symm/no masses Respiratory: chest non-tender, lungs clear, normal breath sounds, speaking full sentences Cardiovascular #1: regular rate, rhythm, no edema Cardiovascular #2: 2+ carotid (R), 2+ carotid (L), 2+ radial (R), 2+ radial (L) , 2+ dorsalis pedis (R), 2+ dorsalis pedis (L) Gastrointestinal: normal bowel sounds, non tender, soft, non-distended, no guarding, no rebound Rectal: deferred Genitourinary: normal inspection, no CVA tenderness Musculoskeletal: back normal, gait/station normal, normal range of motion, non- tender Neurologic: alert, oriented x3, responsive, motor strength/tone normal, sensory intact, speech normal Psychiatric: judgement/insight normal, memory normal, mood/affect normal, no suicidal/homicidal ideation Reflexes: 3+ bicep (R), 3+ bicep (L), 3+ tricep (R), 3+ tricep (L), 3+ knee (R) , 3+ knee (L) Skin: normal color, no rash, warm/dry, well hydrated Lymphatic: no adenopathy Medical Decision Making Diagnostic Impression: Primary Impression: Pancreatitis, chronic Qualified Codes: K86.1 - Other chronic pancreatitis Additional Impression: Opiate dependence Qualified Codes: F11.29 - Opioid dependence with unspecified opioid-induced disorder ER Course Hospital Course 31-year-old F presents to ED with epigastric pain with N/V. h/o pancreatitis. here for blood work differential diagnosis: gastritis, pancreatitis, opiate dependence Clinical course Patient placed on stretcher. On monitoring manager. After initial history and physical I ordered labs, IV fluids, Zofran and protonix Labs - no leukocytosis, no electrolyte abnormalities, LFTs normal Patient's pain did not resolve. I agreed to provide her with one dose of pain medication here Upon reassessment, patient states pain has improved I feel this is a highly complex case requiring extensive working including EKG/ Rhythm strip, Xray/CT/US, Blood/urine lab work, repeat exams while in ED, and administration of strong opiates/narcotics for pain control, admission to hospital or close patient follow up. Diagnosis - chronic pancreatitis, opiate dependence Stable and discharged to home. Followup with PMD. Return to ED if symptoms recur or worsen Labs Test 03/18/17 13:05 03/18/17 13:23 03/18/17 14:10 White Blood Count 7.5 K/UL (4.8-10.8) Red Blood Count 3.48 M/UL (4.20-5.40) Hemoglobin 10.0 G/DL (12.0-16.0) Hematocrit 30.7 % (37.0-47.0) Mean Corpuscular Volume 88 FL (80-99) Mean Corpuscular Hemoglobin 28.8 PG (27.0-31.0) Mean Corpuscular Hemoglobin Concent 32.6 G/DL (32.0-36.0) Red Cell Distribution Width 13.2 % (11.6-14.8) Platelet Count 223 K/UL (150-450) Mean Platelet Volume 6.4 FL (6.5-10.1) Neutrophils (%) (Auto) 80.2 % (45.0-75.0) Lymphocytes (%) (Auto) 14.7 % (20.0-45.0) Monocytes (%) (Auto) 4.8 % (1.0-10.0) Eosinophils (%) (Auto) 0.0 % (0.0-3.0) Basophils (%) (Auto) 0.3 % (0.0-2.0) Sodium Level 141 mEQ/L (135-145) Potassium Level 4.5 mEQ/L (3.4-4.9) Chloride Level 103 mEQ/L (98-107) Carbon Dioxide Level 21 mEQ/L (20-30) Anion Gap 17 (5-15) Blood Urea Nitrogen 8 mg/dL (7-23) Creatinine 0.8 mg/dL (0.5-0.9) Estimat Glomerular Filtration Rate > 60 mL/min (>60) Glucose Level 120 mg/dL (74-106) Calcium Level 9.3 mg/dL (8.6-10.2) Phosphorus Level 3.2 MG/DL (2.5-4.9) Iron Level 64 ug/dL (37-145) Total Iron Binding Capacity 297 ug/dL (250-400) Percent Iron Saturation 22 % (15-50) Unsaturated Iron Binding 233 ug/dL (112-346) Total Bilirubin 0.5 mg/dL (0.0-1.2) Aspartate Amino Transf (AST/SGOT) 18 U/L (5-40) Alanine Aminotransferase (ALT/SGPT) 14 U/L (3-33) Alkaline Phosphatase 54 U/L (35-104) Total Protein 6.5 g/dL (6.6-8.7) Albumin 4.4 g/dL (3.5-5.2) Globulin 2.1 g/dL Albumin/Globulin Ratio 2.0 (1.0-2.7) Lipase 73 U/L (< 60) Urine Color Pale yellow Urine Appearance Clear Urine pH 6 (4.5-8.0) Urine Specific [place] 1.015 (1.005-1.035) Urine Protein Negative (NEGATIVE) Urine Glucose (UA) Negative (NEGATIVE) Urine Ketones Negative (NEGATIVE) Urine Occult Blood 1+ (NEGATIVE) Urine Nitrite Negative (NEGATIVE) Urine Bilirubin Negative (NEGATIVE) Urine Urobilinogen Normal MG/DL (0.0-1.0) Urine Leukocyte Esterase Negative (NEGATIVE) Urine RBC 0-2 /HPF (0 - 2) Urine WBC 0-2 /HPF (0 - 2) Urine Squamous Epithelial Cells Few /LPF (NONE/OCC) Urine Bacteria Few /HPF (NONE) Last Vital Signs Date Time Temp Pulse Resp B/P Pulse Ox O2 Delivery O2 Flow Rate FiO2 03/18/17 15:16 78 16 120/70 98 Room Air 03/18/17 13:49 98.1 Status: improved Disposition: HOME, SELF-CARE Condition: Stable Referrals: NOT CHOSEN IPA/,REFERRING (PCP) Patient Instructions: Lipase Test ANABELL SANDERSON M.D. Mar 19, 2017 07:11
[2017-03-22 15:44] LABS: VITAMIN D 25-OH TOTAL 8.6 ng/mL (.)
== END 2017-03-18 15:20 | disposition home or self-care (01) ==
LOC: EMR 13:26
DX: K86.1 Other chronic pancreatitis (principal); F11.20 Opioid dependence, uncomplicated; R11.2 Nausea with vomiting, unspecified; E11.9 Type 2 diabetes mellitus without complications; K21.9 Gastro-esophageal reflux disease without esophagitis; Z88.8 Allergy status to other drugs, medicaments and biological substances; Z88.0 Allergy status to penicillin; Z88.6 Allergy status to analgesic agent; Z88.2 Allergy status to sulfonamides; Z91.040 Latex allergy status
CPT/HCPCS: 36415; 80053; 81003; 82306; 83540; 83550; 83690; 84100; 85025; 96374; 96375; 99284; C9113; J1170; J1200; J2405; S0028

== ENCOUNTER 2017-04-05 22:34 | Emergency (ER) | payer MEDICARE, MEDICAID ==
[~2017-04-05] VITALS: Ht 165.1 cm; Wt 49.9 kg
[2017-04-05 22:48] VITALS: BP 127/85
[2017-04-05] MEDS ORDERED: NKM (22:52)
[2017-04-05] MEDS ORDERED: Norco 5mg/325mg tab ORAL ONE (23:15)
--- NOTE | 2017-04-05 23:22 | Emergency Room Report ---
History of Present Illness General Chief Complaint: General Complaint Source: Patient Present Illness HPI Is a 31-year-old female who stated that she has pancreatic insufficiency based on testing. She also said her kidneys shutting down and her liver failing. She has been here multiple times for the same type of abdominal pain and migraine complaint. She said that her last move all these issues. She was here on March 18 and labs are normal. Urine showed no ketones or routine. Her liver enzymes are normal. Her kidney functions are normal. Pt complaining of migraine for ongoing for 7 days. No photophobia. Said she can't keep anything down. Said she needs her pain medication. Allergies: Coded Allergies: ACETAMINOPHEN (Verified Allergy, Unknown, 12/18/16) ASPIRIN (Unverified Allergy, Unknown, 12/18/16) HALOPERIDOL (Verified Allergy, Unknown, 12/18/16) LATEX (Verified Allergy, Unknown, 12/18/16) METOCLOPRAMIDE (Unverified Allergy, Unknown, 12/18/16) PENICILLIN (Unverified Allergy, Unknown, 12/18/16) PROCHLORPERAZINE (Unverified Allergy, Unknown, 05/11/15) SULFA (SULFONAMIDE ANTIBIOTICS) (Unverified Allergy, Unknown, 05/11/15) Uncoded Allergies: SULFA (Allergy, Unknown, 01/22/16) Patient History Past Medical History: see triage record, old chart reviewed Past Surgical History: other Pertinent Family History: none Social History: Denies: smoking Last Menstrual Period: 01/05/17 Now: No : 0 Para: 0 Immunizations: other Reviewed Nursing Documentation: PMH: Agreed, PSxH: Agreed Nursing Documentation-PM Hx Pacemaker: No Hx Asthma: No Hx COPD: No Hx Diabetes: Yes - dm2 Hx Cancer: No Hx Dialysis: Yes Hx Cerebrovascular Accident: No Hx Seizures: No Hx Vertigo: Yes Hx Dizziness: Yes Hx Headaches: Yes - migraines Review of Systems Eye: Denies: blurred vision, eye pain ENT: Denies: ear pain, nose congestion, throat swelling Respiratory: Denies: cough, shortness of breath Cardiovascular: Denies: chest pain, palpitations Gastrointestinal: Denies: abdominal pain, diarrhea, nausea, vomiting Musculoskeletal: Denies: back pain, joint pain Skin: Denies: rash Neurological: Reports: headache, Denies: numbness Endocrine: Denies: increased thirst, increased urine Hematologic/Lymphatic: Denies: easy bruising All Other Systems: negative except mentioned in HPI Physical Exam Vital Signs Date Time Temp Pulse Resp B/P Pulse Ox O2 Delivery O2 Flow Rate FiO2 04/05/17 22:48 98.1 94 16 127/85 100 Room Air vitals normal Sp02 EP Interpretation: reviewed, normal General Appearance: well appearing, no apparent distress, alert Head: normocephalic, atraumatic Eyes: bilateral eye EOMI, bilateral eye PERRL ENT: hearing grossly normal, normal pharynx Neck: full range of motion, supple, no meningismus Respiratory: chest non-tender, lungs clear, normal breath sounds Cardiovascular #1: regular rate, rhythm, no murmur Gastrointestinal: normal bowel sounds, non tender, no mass, no organomegaly, no bruit, non-distended Musculoskeletal: back normal, gait/station normal, normal range of motion Psychiatric: other - Patient is extremely histrionic Skin: warm/dry Medical Decision Making Diagnostic Impression: Primary Impression: Abdominal pain Qualified Codes: R10.84 - Generalized abdominal pain Additional Impressions: Opiate dependence Qualified Codes: F11.20 - Opioid dependence, uncomplicated Headache disorder ER Course Patient presents with chronic pain complaint. Based on her labs and CT scan, there is nothing remarkable. She claimed that she can take Tylenol because of her liver and pancreatic problem. Again labs does not show this. Urine is not dark. She is obviously hydrating well. We'll discharge home. She was extremely verbally abusive to me and staff. her issues may be more psychogenic in opioid dependency. Last Vital Signs Date Time Temp Pulse Resp B/P Pulse Ox O2 Delivery O2 Flow Rate FiO2 04/05/17 22:48 98.1 94 16 127/85 100 Room Air Status: unchanged Disposition: HOME, SELF-CARE Condition: Stable Additional Instructions: followup with your Dr. in 7 days. Return if symptom worsen. JOSHUA MARTINI M.D. Apr 05, 2017 23:22
[2017-04-05 23:44] LABS: APPEARANCE,URINE CLEAR; KETONES,URINE NEGATIVE (NEGATIVE); LEUKOCYTE ESTERASE ,URINE 1+ (NEGATIVE); NITRITE,URINE NEGATIVE (NEGATIVE); PH,URINE 8 (4.5-8.0); PROTEIN,URINE NEGATIVE (NEGATIVE); UROBILINOGEN,URINE NORMAL MG/DL (0.0-1.0)
[2017-04-06 00:17] LABS: RBC,URINE 0-2 /HPF (0 - 2)
[2017-04-06 00:18] LABS: BACTERIA,URINE FEW /HPF; SQUAMOUS EPITHELIAL CELL,UR FEW /LPF (NONE/OCC); WBC,URINE 0-2 /HPF (0 - 2)
== END 2017-04-06 00:01 | disposition home or self-care (01) ==
LOC: EMR 23:00
DX: R10.9 Unspecified abdominal pain (principal); F11.20 Opioid dependence, uncomplicated; G89.29 Other chronic pain; R51 Headache; E11.9 Type 2 diabetes mellitus without complications; Z88.6 Allergy status to analgesic agent; Z88.0 Allergy status to penicillin; Z88.2 Allergy status to sulfonamides; Z88.8 Allergy status to other drugs, medicaments and biological substances; Z91.040 Latex allergy status
CPT/HCPCS: 81003; 99282

== ENCOUNTER 2017-05-20 18:11 | Emergency (ER) | payer MEDICARE, MEDICAID ==
[~2017-05-20] VITALS: Ht 165.1 cm; Wt 49.9 kg
[2017-05-20] MEDS ORDERED: DiphenhydrAMINE 50mg/ml Inj IVP ONE (19:00)
[2017-05-20] MEDS ORDERED: HYDROmorphone 1mg/NS 50ml IVPB 50 ML IVPB PRN (19:00)
[2017-05-20 19:15] VITALS: BP 115/70
[2017-05-20] MEDS ORDERED: Famotidine 20 MG/ 2ML VIAL IVP ONE (20:00)
[2017-05-20 20:06] LABS: MEAN CORPUSCULAR HEMOGLOBIN 28.9 PG (27.0-31.0); MEAN CORPUSCULAR HGB CONC 33.3 G/DL (32.0-36.0); MEAN CORPUSCULAR VOLUME 87 FL (80-99); MEAN PLATELET VOLUME 5.9 FL (6.5-10.1); PLATELET COUNT 104 K/UL (150-450); RED CELL DISTRIBUTION WIDTH 13.8 % (11.6-14.8); WHITE BLOOD COUNT 3.1 K/UL (4.8-10.8)
[2017-05-20 20:08] LABS: BASOPHILS % (AUTO) 0.5 % (0.0-2.0); EOSINOPHILS % (AUTO) 0.9 % (0.0-3.0); LYMPHOCYTES % (AUTO) 33.9 % (20.0-45.0); MONOCYTES % (AUTO) 11.9 % (1.0-10.0); NEUTROPHILS % (AUTO) 52.7 % (45.0-75.0)
[2017-05-20 20:22] LABS: ALANINE AMINOTRANSFERASE 23 U/L (3-33); ALBUMIN/GLOBULIN RATIO 1.6 (1.0-2.7); ANION GAP 11 (5-15); ASPARTATE AMINO TRANSFERASE 31 U/L (5-40); CALCIUM 8.9 mg/dL (8.6-10.2); CARBON DIOXIDE 25 mEQ/L (20-30); CHLORIDE 101 mEQ/L (98-107); CREATININE 0.7 mg/dL (0.5-0.9); GLOMERULAR FILTRATION RATE > 60 mL/min (>60); HEMOLYSIS 3; LIPASE 33 U/L (< 60); POTASSIUM 3.7 mEQ/L (3.4-4.9); SODIUM 137 mEQ/L (135-145); TOTAL PROTEIN 6.4 g/dL (6.6-8.7)
[2017-05-20] MEDS ORDERED: KNEE STABILIZE1 EACH MC (21:24)
[2017-05-20 21:35] VITALS: BP 120/72
[2017-05-20 21:40] VITALS: BP 120/72
--- NOTE | 2017-05-21 22:07 | Emergency Room Report ---
History of Present Illness General Chief Complaint: Abdominal Pain Source: Patient Present Illness HPI The patient is a 32-year-old female with a stated history of chronic pancreatitis And diabetes presenting for abdominal pain. Pain is a 10 out of 10 dull ache to the mid-upper abdomen and does not radiate. No known provoking relieving factors. Pain has been ongoing but has worsened today. No known reason. She states that she has been unable to obtain appointments with pain management and her primary doctor will not treat her pain.She also admits to nausea and vomiting. She denies other symptoms including fever, chills, diarrhea, constipation, rash, headache, shortness of breath. Allergies: Coded Allergies: ACETAMINOPHEN (Verified Allergy, Unknown, 12/18/16) ASPIRIN (Unverified Allergy, Unknown, 12/18/16) HALOPERIDOL (Verified Allergy, Unknown, 12/18/16) LATEX (Verified Allergy, Unknown, 12/18/16) METOCLOPRAMIDE (Unverified Allergy, Unknown, 12/18/16) PENICILLIN (Unverified Allergy, Unknown, 12/18/16) PROCHLORPERAZINE (Unverified Allergy, Unknown, 05/11/15) SULFA (SULFONAMIDE ANTIBIOTICS) (Unverified Allergy, Unknown, 05/11/15) Uncoded Allergies: SULFA (Allergy, Unknown, 01/22/16) Patient History Past Medical History: see triage record Pertinent Family History: none Last Menstrual Period: bc Now: No Nursing Documentation-PMH Past Medical History: No History, Except For Hx Pacemaker: No Hx Asthma: No Hx COPD: No Hx Diabetes: Yes - dm2 Hx Cancer: No Hx Gastrointestinal Problems: Yes - Pancreatic insufficiency Hx Dialysis: Yes Hx Cerebrovascular Accident: No Hx Seizures: No Hx Vertigo: Yes Hx Dizziness: Yes Hx Headaches: Yes - migraines Review of Systems All Other Systems: negative except mentioned in HPI Physical Exam Vital Signs Date Time Temp Pulse Resp B/P Pulse Ox O2 Delivery O2 Flow Rate FiO2 05/20/17 18:36 98.1 114 16 113/69 98 Room Air Sp02 EP Interpretation: reviewed, normal General Appearance: no apparent distress, alert, GCS 15, non-toxic Head: normocephalic, atraumatic Eyes: bilateral eye PERRL, bilateral eye normal inspection ENT: hearing grossly normal, normal pharynx, no angioedema, normal voice Neck: full range of motion, supple/symm/no masses Respiratory: chest non-tender, lungs clear, normal breath sounds, speaking full sentences Cardiovascular #1: regular rate, rhythm, no edema Gastrointestinal: normal bowel sounds, soft, no mass, tenderness - diffuse Genitourinary: normal inspection, no CVA tenderness Musculoskeletal: back normal, gait/station normal, normal range of motion, non- tender Neurologic: alert, oriented x3, responsive, motor strength/tone normal, sensory intact, speech normal Psychiatric: judgement/insight normal, memory normal, mood/affect normal, no suicidal/homicidal ideation Skin: normal color, no rash, warm/dry, well hydrated Medical Decision Making PA Attestation Dr. Styles is my supervising physician. Patient management was discussed with my supervising physician Diagnostic Impression: Primary Impression: Abdominal pain Qualified Codes: R10.9 - Unspecified abdominal pain ER Course The patient is a 32 yo F with history of chronic pancreatitis presenting for abdominal pain. DDx considered but not limited to: pancreatitis, gastritis, constipation, opiate dependence, among others. PE:vitals WNL. NAD Skin is warm and dry. Abd is diffusely tender to soft palpation. Soft. Non distended. RRR. Lungs CTA bilat Labwork significant for anemia. Otherwise unremarkable. No leukocytosis. Lipase WNL The patient is given pain medication and feels better. Pain has decreased yet she is requesting more so the pain will not return when she goes home. I declined and patient became upset. She states she has stopped taking iron supplementation due to constipation. She states she also used to receive IV transfusions but has not been able to recently because she states her doctor did not want to anymore. She will be NC'ed home and needs to FU with PMD. She was told she cannot keep coming to the ER just for pain treatment. As a last request, she has asked for knee sleeves due to feeling of weakness. Prescription given. Labs Test 05/20/17 19:20 White Blood Count 3.1 K/UL (4.8-10.8) Red Blood Count 2.90 M/UL (4.20-5.40) Hemoglobin 8.4 G/DL (12.0-16.0) Hematocrit 25.2 % (37.0-47.0) Mean Corpuscular Volume 87 FL (80-99) Mean Corpuscular Hemoglobin 28.9 PG (27.0-31.0) Mean Corpuscular Hemoglobin Concent 33.3 G/DL (32.0-36.0) Red Cell Distribution Width 13.8 % (11.6-14.8) Platelet Count 104 K/UL (150-450) Mean Platelet Volume 5.9 FL (6.5-10.1) Neutrophils (%) (Auto) 52.7 % (45.0-75.0) Lymphocytes (%) (Auto) 33.9 % (20.0-45.0) Monocytes (%) (Auto) 11.9 % (1.0-10.0) Eosinophils (%) (Auto) 0.9 % (0.0-3.0) Basophils (%) (Auto) 0.5 % (0.0-2.0) Sodium Level 137 mEQ/L (135-145) Potassium Level 3.7 mEQ/L (3.4-4.9) Chloride Level 101 mEQ/L (98-107) Carbon Dioxide Level 25 mEQ/L (20-30) Anion Gap 11 (5-15) Blood Urea Nitrogen 8 mg/dL (7-23) Creatinine 0.7 mg/dL (0.5-0.9) Estimat Glomerular Filtration Rate > 60 mL/min (>60) Glucose Level 112 mg/dL (74-106) Calcium Level 8.9 mg/dL (8.6-10.2) Total Bilirubin 0.2 mg/dL (0.0-1.2) Aspartate Amino Transf (AST/SGOT) 31 U/L (5-40) Alanine Aminotransferase (ALT/SGPT) 23 U/L (3-33) Alkaline Phosphatase 46 U/L (35-104) Total Protein 6.4 g/dL (6.6-8.7) Albumin 4.0 g/dL (3.5-5.2) Globulin 2.4 g/dL Albumin/Globulin Ratio 1.6 (1.0-2.7) Lipase 33 U/L (< 60) Lab Results Impression Anemia. Otherwise unremarkable. Lipase WNL Last Vital Signs Date Time Temp Pulse Resp B/P Pulse Ox O2 Delivery O2 Flow Rate FiO2 05/20/17 21:40 98.2 81 16 120/72 99 Room Air Status: improved Disposition: HOME, SELF-CARE Condition: Improved Scripts Leg Brace (KNEE STABILIZER) 1 Each Each 1 EACH , #2 Prov: SONY CORONA 05/20/17 Patient Instructions: Abdominal Pain, Adult Additional Instructions: I discussed my findings with the patient. All questions and concerns have been answered. Treatment and medication compliance have been addressed. I advised the patient that they need to follow up with PMD in 3-5 days. Return to ED if symptoms worsen, new symptoms arise, or if needed for any reason. Patient verbalized understanding of discharge instructions. SONY CORONA May 21, 2017 22:07
== END 2017-05-20 21:40 | disposition home or self-care (01) ==
LOC: EMR 18:54
DX: R10.9 Unspecified abdominal pain (principal); E11.9 Type 2 diabetes mellitus without complications; Z88.6 Allergy status to analgesic agent; Z88.0 Allergy status to penicillin; Z88.2 Allergy status to sulfonamides; Z88.8 Allergy status to other drugs, medicaments and biological substances; Z91.040 Latex allergy status; Z87.19 Personal history of other diseases of the digestive system
CPT/HCPCS: 36415; 80053; 83690; 85025; 96360; 96375; 99284; J1170; J1200; S0028

== ENCOUNTER 2017-06-11 23:38 | Emergency (ER) | payer MEDICARE, MEDICAID ==
[~2017-06-11] VITALS: Ht 165.1 cm; Wt 47.6 kg
[~2017-06-11 23:38] MED LIST changes: +KNEE STABILIZE1 EACH MC
[2017-06-12 00:04] VITALS: BP 87/59
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
[2017-06-12 01:44] LABS: BASOPHILS % (AUTO) 0.6 % (0.0-2.0); EOSINOPHILS % (AUTO) 1.5 % (0.0-3.0); LYMPHOCYTES % (AUTO) 23.6 % (20.0-45.0); MEAN CORPUSCULAR HEMOGLOBIN 28.4 PG (27.0-31.0); MEAN CORPUSCULAR HGB CONC 32.3 G/DL (32.0-36.0); MEAN CORPUSCULAR VOLUME 88 FL (80-99); MONOCYTES % (AUTO) 4.6 % (1.0-10.0); NEUTROPHILS % (AUTO) 69.7 % (45.0-75.0); PLATELET COUNT 293 K/UL (150-450); RED BLOOD COUNT 3.48 M/UL (4.20-5.40); RED CELL DISTRIBUTION WIDTH 16.5 % (11.6-14.8)
[2017-06-12 01:59] LABS: ALANINE AMINOTRANSFERASE 12 U/L (3-33); ALBUMIN/GLOBULIN RATIO 1.4 (1.0-2.7); ANION GAP 11 (5-15); ASPARTATE AMINO TRANSFERASE 17 U/L (5-40); CALCIUM 8.8 mg/dL (8.6-10.2); CARBON DIOXIDE 26 mEQ/L (20-30); CHLORIDE 104 mEQ/L (98-107); CREATININE 0.7 mg/dL (0.5-0.9); GLOMERULAR FILTRATION RATE > 60 mL/min (>60); HEMOLYSIS 2; LIPASE 123 U/L (< 60); SODIUM 141 mEQ/L (135-145); TOTAL PROTEIN 6.2 g/dL (6.6-8.7)
[2017-06-12] MEDS ORDERED: Famotidine 20 MG/ 2ML VIAL IVP ONE (02:00)
[2017-06-12] MEDS ORDERED: Mylanta II UD 30ml ORAL ONE (02:15)
[2017-06-12] MEDS ORDERED: Dicyclomine HCl 10mg/5ml oral soln ORAL ONE (02:15)
[2017-06-12 02:32] VITALS: BP 87/59
== END 2017-06-12 02:32 | disposition left against medical advice (07) ==
LOC: EDBD 23:38 → EDUNIT# 23:38 → EMR 23:58
DX: R10.9 Unspecified abdominal pain (principal); F91.9 Conduct disorder, unspecified; E11.9 Type 2 diabetes mellitus without complications; K86.1 Other chronic pancreatitis; Z88.6 Allergy status to analgesic agent; Z88.0 Allergy status to penicillin; Z88.2 Allergy status to sulfonamides; Z88.8 Allergy status to other drugs, medicaments and biological substances
CPT/HCPCS: 36415; 80053; 83690; 85025; 86850; 86900; 86901; 99284

== ENCOUNTER 2018-11-12 23:17 | Emergency (ER) | payer MEDICARE, MEDICAID ==
[~2018-11-12] VITALS: Ht 165.1 cm; Wt 49.9 kg
[2018-11-12 23:38] VITALS: BP 112/81
--- NOTE | 2018-11-12 23:48 | NUR ---
ED Nurse Note: PT CAME TO ED C/O PANCREATITIS AND PEPTIC ULCER PAIN PT SAID SHE HAS BEEN VOMTING BLOOD SINCE THIS MORNING , PAIN 10/10 EPIGASTRIC SHARP SHOOTING PAIN AND BURNGIN STOMACH PAIN. Port cath located on UR chest.
[2018-11-13] MEDS ORDERED: Pantoprazole Inj IV ONE
[2018-11-13 00:31] LABS: BASOPHILS % (AUTO) 1.5 % (0.0-2.0); EOSINOPHILS % (AUTO) 3.5 % (0.0-3.0); HEMATOCRIT 31.2 % (37.0-47.0); HEMOGLOBIN 10.6 G/DL (12.0-16.0); MEAN CORPUSCULAR VOLUME 92 FL (80-99); MONOCYTES % (AUTO) 6.9 % (1.0-10.0); NEUTROPHILS % (AUTO) 42.1 % (45.0-75.0); PLATELET COUNT 199 K/UL (150-450); RED BLOOD COUNT 3.41 M/UL (4.20-5.40); RED CELL DISTRIBUTION WIDTH 11.6 % (11.6-14.8); WHITE BLOOD COUNT 5.4 K/UL (4.8-10.8)
[2018-11-13 00:51] LABS: ANION GAP 7 mmol/L (5-15); BLOOD UREA NITROGEN 14 mg/dL (7-18); CALCIUM 8.2 MG/DL (8.5-10.1); CARBON DIOXIDE 26 MMOL/L (21-32); CHLORIDE 106 MMOL/L (98-107); CREATININE 0.7 MG/DL (0.55-1.30); POTASSIUM 3.2 MMOL/L (3.5-5.1); SODIUM 139 MMOL/L (136-145)
[2018-11-13 00:55] LABS: ALANINE AMINOTRANSFERASE 14 U/L (12-78); ALBUMIN/GLOBULIN RATIO 1.6 (1.0-2.7); ALKALINE PHOSPHATASE 71 U/L (46-116); ASPARTATE AMINO TRANSFERASE 17 U/L (15-37); BILIRUBIN,TOTAL 0.2 MG/DL (0.2-1.0)
[2018-11-13] MEDS ORDERED: PROTONIX40 MG ORAL (01:16)
[2018-11-13] MEDS ORDERED: ONDANSETRON ODT4 MG BC (01:16)
[2018-11-13 01:38] VITALS: BP 120/75
--- NOTE | 2018-11-13 01:38 | NUR ---
ED Nurse Note: PT is DC per ERMD order. pt is alert and oriented times 4 and presents with no abnormal complicartions. pt has left with all belongings with the ID band removed. pt has left with DC notes and prescriptions and has shown understandings of DC instructions. pt is instructed to follow up with primary provider and/ or return to ER if any reoccurance of symptoms or any complications.
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
== END 2018-11-13 01:38 | disposition home or self-care (01) ==
LOC: EMR 23:45
DX: K29.70 Gastritis, unspecified, without bleeding (principal); F11.20 Opioid dependence, uncomplicated; E11.9 Type 2 diabetes mellitus without complications; Z88.6 Allergy status to analgesic agent; Z88.0 Allergy status to penicillin; Z88.2 Allergy status to sulfonamides; Z88.8 Allergy status to other drugs, medicaments and biological substances; Z91.040 Latex allergy status
CPT/HCPCS: 36415; 80053; 83690; 85025; 96361; 96374; 96375; 99284; C9113; J2405